=== PATIENT | male | born 1945 | race Caucasian/White ===

== ENCOUNTER 2018-10-13 07:12 | Day surgery (SDC) | payer MEDICAID ==
[2018-10-13 07:54] VITALS: BMI 20.7
--- NOTE | 2018-10-13 09:34 | CP.SDSHP ---
Same Day Surgery H & P - History Proposed Procedure: COLONSCOPY Pre-Op Diagnosis: SEE NOTES - Previous Medical/Surgical History Cardiac: Hypertension Endocrine/Metabolic: Thyroid Disease, Diabetes, Other Misc: Other Previous Surgical History: ANEMIA - Allergies Allergies: Allergies metronidazole [From Flagyl] Allergy (Intermediate, Verified 10/13/18 07:49) RASH - Physical Exam General Appearance: N Vital Signs: Vital Signs 10/13/18 07:54 Temperature 97.8 F Pulse Rate 71 Respiratory 19 Rate Blood Pressure 149/69 O2 Sat by Pulse 100 Oximetry Mental Status: Alert & Oriented x3 Neuro: WNL Heart: Other Lungs: WNL GI: WNL - {Optional Preform as Required} Breast: WNL Abdomen: Other Rectal: Other Integument: WNL : WNL Ortho: Other ENT: WNL - Impression Pt. Evaluated Today:Candidate for Anesthesia & Procedure: Yes - Date & Time Time: 09:34 Short Stay Discharge - Short Stay Discharge Admitting Diagnosis/Reason for Visit: ANEMIA Disposition: HOME/ ROUTINE
[2018-10-13] MEDS ORDERED: Propofol 10 mg/ml Inj (20 ML) ONE (09:37)
[2018-10-13] MEDS ORDERED: Midazolam 2 MG/2 ML VIAL ONE (09:37)
[2018-10-13] MEDS ORDERED: Belladonna-Phenobarbital PO ONE (10:35)
[2018-10-13 11:46] VITALS: TEMP 98
[2018-10-13 11:48] VITALS: O2SAT 100
[2018-10-13 11:54] VITALS: BP 139/70; PULSE 75; RESP 18
== END 2018-10-13 11:45 | disposition home or self-care (01) ==
LOC: C.ENDO 07:12
PROVIDERS: ATTEND Specialist
DX: R10.9 Unspecified abdominal pain (principal); D50.9 Iron deficiency anemia, unspecified; K57.30 Diverticulosis of large intestine without perforation or abscess without bleeding; D12.0 Benign neoplasm of cecum; K64.8 Other hemorrhoids
CPT/HCPCS: 45385; 82948; 88305; J2250; J2704

== ENCOUNTER 2018-11-17 07:09 | Day surgery (SDC) | payer MEDICAID ==
[2018-07-29 18:28] VITALS: BMI 20.7
[2018-11-17 08:18] VITALS: O2SAT 100
[2018-11-17] MEDS ORDERED: Propofol 10 mg/ml Inj (20 ML) ONE (09:05)
[2018-11-17] MEDS ORDERED: Lidocaine Hydrochloride 5 ML INJ ONE (09:05)
[2018-11-17] MEDS ORDERED: Lactated Ringer's 1,000 ML IV ONE (09:06)
--- NOTE | 2018-11-17 09:09 | CP.SDSHP ---
Same Day Surgery H & P - History Proposed Procedure: EGD Pre-Op Diagnosis: SEE NOTES - Previous Medical/Surgical History Cardiac: Hypertension Endocrine/Metabolic: Thyroid Disease, Diabetes, Other Misc: , Other Pain: 4.Moderate Pain - Allergies Allergies: Allergies metronidazole [From Flagyl] Allergy (Intermediate, Verified 10/13/18 07:49) RASH - Physical Exam General Appearance: N Vital Signs: Vital Signs 11/17/18 08:12 Temperature 98.6 F Pulse Rate 66 Respiratory 19 Rate Blood Pressure 149/65 O2 Sat by Pulse 100 Oximetry Mental Status: Alert & Oriented x3 Neuro: WNL Heart: Other Lungs: WNL GI: Other - {Optional Preform as Required} Breast: WNL Abdomen: Other Rectal: Other Integument: WNL : Other Ortho: WNL ENT: WNL - Impression Pt. Evaluated Today:Candidate for Anesthesia & Procedure: Yes - Date & Time Time: 09:10 Short Stay Discharge - Short Stay Discharge Admitting Diagnosis/Reason for Visit: ANEMIA Disposition: HOME/ ROUTINE
[2018-11-17] MEDS ORDERED: Belladonna-Phenobarbital PO STA (09:11)
[2018-11-17] MEDS ORDERED: Pantoprazole 40 mg EC Tab PO STA (09:12)
[2018-11-17 09:42] VITALS: TEMP 97.8
[2018-11-17 10:07] VITALS: PULSE 65
[2018-11-17 10:38] VITALS: BP 135/63; RESP 18
== END 2018-11-17 10:38 | disposition home or self-care (01) ==
LOC: C.ENDO 07:09
PROVIDERS: ATTEND Specialist
DX: K20.9 Esophagitis, unspecified (principal); D64.9 Anemia, unspecified; K29.50 Unspecified chronic gastritis without bleeding; I10 Essential (primary) hypertension; E11.9 Type 2 diabetes mellitus without complications
CPT/HCPCS: 43239; 82948; 88305; J2704; J7120